=== PATIENT | female | born 1960 | race Caucasian/White ===

== ENCOUNTER 2019-09-01 07:21 | Day surgery (SDC) | payer OTHER ==
[2019-09-01] MEDS ORDERED: Lactated Ringers 1,000 ML IV SCH (08:15)
[2019-09-01] MEDS ORDERED: Midazolam 1 MG/ML 2 ML SDV ONE (09:06)
[2019-09-01] MEDS ORDERED: fentaNYL 100 MCG/2 ML SDV ONE (09:06)
[2019-09-01] MEDS ORDERED: Propofol 200 MG/20 ML SDV ONE ×2 (09:06→09:52)
[2019-09-01] MEDS ORDERED: Ondansetron 4 MG/2 ML SDV ONE (09:38)
[2019-09-01] MEDS ORDERED: Lactated Ringers 1,000 ML ONE (09:39)
[2019-09-01 11:09] VITALS: BP 175/90; PULSE 84
--- NOTE | 2019-09-01 14:23 | OR ---
DATE OF PROCEDURE: 09/01/2019 SURGEON: Moncho Henderson MD PREOPERATIVE DIAGNOSIS: Colon cancer screening. POSTOPERATIVE DIAGNOSES: Two small colon polyps, hemorrhoids. PROCEDURE: Colonoscopy to the cecum with biopsy resection of 2 small colon polyps. ANESTHESIA: IV anesthesia with monitored anesthesia care. INDICATION: This 58-year-old white female is referred for a colonoscopy. She has never had a colonoscopic exam. I counseled her for the procedure, including risks and alternatives, and she gave her informed consent to proceed. DESCRIPTION OF PROCEDURE: The patient was placed in the left lateral decubitus position. IV anesthesia was administered by the Anesthesia Service. Time-out was held. A rectal exam was performed, which was unremarkable. The flexible video Olympus colonoscope was introduced through her anus, up her rectum, out her colon all the way to the cecum. En route, in the distal transverse colon, we saw a small polyp which was removed with the biopsy forceps. A second small polyp was seen at the hepatic flexure, which was removed with the biopsy forceps. Once the cecum was reached, the scope was slowly withdrawn examining the mucosa throughout. No additional mucosal abnormalities were noted. The scope was retroflexed in the rectum with the distal rectum showing what appeared to be some hemorrhoidal tissue. The scope was straightened and removed. She tolerated the procedure well. Moncho Henderson MD /[id number]
== END 2019-09-01 11:25 | disposition home or self-care (01) ==
LOC: JP.SDS 07:21
PROVIDERS: ATTEND Surgery
DX: Z12.11 Encounter for screening for malignant neoplasm of colon (principal); D12.3 Benign neoplasm of transverse colon; E78.5 Hyperlipidemia, unspecified; E66.9 Obesity, unspecified; K21.9 Gastro-esophageal reflux disease without esophagitis; J45.909 Unspecified asthma, uncomplicated; Z87.11 Personal history of peptic ulcer disease; Z68.37 Body mass index [BMI] 37.0-37.9, adult
CPT/HCPCS: 88305; J2250; J2405; J2704; J3010; J7120